=== PATIENT | male | born 1950 | race Caucasian/White ===

== ENCOUNTER 2024-04-12 22:48 | Emergency (ER) | payer MEDICARE, BC ==
[2024-04-12] MEDS: Bisacodyl 10 MG Supp RECTAL ONE (23:38)
[2024-04-13 01:16] LABS: APPEARANCE,URINE CLEAR (CLEAR); BILIRUBIN,URINE NEGATIVE (NEGATIVE); COLOR,URINE YELLOW (YELLOW); GLUCOSE,URINE NEGATIVE (NEGATIVE); KETONES,URINE NEGATIVE (NEGATIVE); LEUKOCYTE ESTERASE,URINE NEGATIVE (NEGATIVE); NITRITE,URINE NEGATIVE (NEGATIVE); OCCULT BLOOD,URINE NEGATIVE (NEGATIVE); PROTEIN,URINE NEGATIVE (NEGATIVE); UROBILINOGEN,URINE 0.2 mg/dL (0.2-1.0)
[2024-04-13] MEDS: Lactulose Soln 10 GM/15 ML 30 ML UD Cup PO ONE (01:34)
== END 2024-04-13 01:46 | disposition home or self-care (01) ==
LOC: DL.ED 22:48
DX: K59.09 Other constipation (principal); N40.1 Benign prostatic hyperplasia with lower urinary tract symptoms; E78.00 Pure hypercholesterolemia, unspecified; Z79.899 Other long term (current) drug therapy; Z87.891 Personal history of nicotine dependence
CPT/HCPCS: 81003; 99283; A9270